=== PATIENT | female | born 1970 ===

== ENCOUNTER 2016-10-25 22:45 | Emergency (ER) | payer OTHER ==
[~2016-10-25] VITALS: Ht 167.6 cm; Wt 102.1 kg
[2016-10-25 22:50] VITALS: BP 130/96
[2016-10-26] MEDS ORDERED: IBUPROFEN 400 MG TABLET ONE (00:59)
[2016-10-26] MEDS: IBUPROFEN 400 MG TABLET PO ONE (01:11)
--- NOTE | 2016-10-26 02:06 | NUR ---
REPORT GIVEN TO YVETTE, [employer] INSPECTOR FOR [facility]
== END 2016-10-26 02:46 | disposition home or self-care (01) ==
LOC: ER 22:45
DX: M25.561 Pain in right knee (principal); M17.9 Osteoarthritis of knee, unspecified; F17.200 Nicotine dependence, unspecified, uncomplicated; Z71.6 Tobacco abuse counseling; Z98.84 Bariatric surgery status
CPT/HCPCS: 73564-TC; A4606; Z7610